=== PATIENT | female | born 1990 | race Caucasian/White ===

== ENCOUNTER 2017-06-26 23:57 | Inpatient (IN) | payer OTHER ==
[~2017-06-26] VITALS: Ht 177.8 cm; Wt 80.2 kg
[2017-06-27] MEDS ORDERED: PROMETHAZINE 25 MG/ML, 1ML ONE (00:24)
[2017-06-27] MEDS ORDERED: MORPHINE SULFATE 4 MG/ML, 1ML ONE (00:25)
[2017-06-27] MEDS ORDERED: ONDANSETRON 2MG/ML, 2ML ONE (00:25)
[2017-06-27] MEDS ORDERED: ONDANSETRON 2MG/ML, 2ML IVPush ONE (00:30)
[2017-06-27] MEDS ORDERED: SODIUM CHLORIDE FLUSH 10ML SYR IVF ONE ×2 (00:30→02:00)
[2017-06-27] MEDS ORDERED: SODIUM CHLORIDE 0.9% 1,000ML IVBOLUS ONE ×2 (00:30→02:00)
[2017-06-27] MEDS ORDERED: PROMETHAZINE 25 MG/ML, 1ML IM ONE (00:30)
[2017-06-27] MEDS ORDERED: MORPHINE SULFATE 4 MG/ML, 1ML IVPush PRN (00:30)
[2017-06-27 00:45] LABS: HEMATOCRIT 59.2 % (34.6-47.8); HEMOGLOBIN 19.6 g/dL (11.7-16.4); WHITE BLOOD COUNT 14.1 x10^3/uL (3.4-10)
[2017-06-27 00:57] LABS: BLOOD UREA NITROGEN 23 mg/dL (7-18)
[2017-06-27 01:00] LABS: ASPARTATE AMINO TRANSFERASE 174 U/L (15-37)
[2017-06-27] MEDS ORDERED: LORazepam 2 MG/ML, 1ML ONE (01:24)
[2017-06-27] MEDS ORDERED: MAGNESIUM SULFATE 1 GM, THIAMINE 100 MG, FOLIC ACID 1 MG, MVI ADULT 10 ML in SODIUM CHL... IV ONE (01:30)
[2017-06-27 01:31] LABS: ABG COLLECTION SITE RIGHT BRACHIAL; FIO2 ROOMAIR %
[2017-06-27] MEDS ORDERED: SODIUM CHLORIDE 0.9% 1,000 ML IV ONE (01:34)
[2017-06-27] MEDS: LORazepam 2 MG/ML, 1ML IVPush PRN ×2 (01:48→21:10)
[2017-06-27] MEDS ORDERED: NS + 20MEQ KCL 1,000 ML IV SCH (03:02)
[2017-06-27] MEDS ORDERED: LABETALOL 5MG/ML, 20ML IVPush PRN (03:30)
[2017-06-27] MEDS ORDERED: ONDANSETRON 2MG/ML, 2ML IVPush PRN (03:30)
[2017-06-27] MEDS ORDERED: DOCUSATE 100 MG CAPSULE PO PRN (03:30)
[2017-06-27] MEDS ORDERED: OXYcodone IR 5MG TABLET PO PRN (03:30)
[2017-06-27] MEDS ORDERED: ONDANSETRON ODT 4 MG PO PRN (03:30)
[2017-06-27] MEDS ORDERED: TEMAZEPAM 15 MG CAPSULE PO PRN (03:30)
[2017-06-27] MEDS ORDERED: LORazepam 1MG TABLET PO PRN (03:30)
[2017-06-27 03:56] LABS: BLOOD UREA NITROGEN 22 mg/dL (7-18)
[2017-06-27 04:28] VITALS: BP 128/85
[2017-06-27] MEDS: POTASSIUM CHLORIDE 20 MEQ, MAGNESIUM SULFATE 2 GM, THIAMINE 100 MG, MVI ADULT 10 ML, FO... IV SCH ×2 (04:56→16:01)
[2017-06-27] MEDS: morphine SULFATE 10 MG/ML, 1ML IVPush PRN ×7 (05:46→18:16)
[2017-06-27 07:48] VITALS: BP 137/93
[2017-06-27] MEDS: FAMOTIDINE 20 MG/2 ML IVPush SCH ×2 (08:06→21:10)
[2017-06-27] MEDS ORDERED: POTASSIUM CHLORIDE 20 MEQ in SODIUM CHLORIDE 0.9% 250 ML IV ONE (11:30)
[2017-06-27 11:34] VITALS: BP 115/83
[2017-06-27 13:53] VITALS: BP 131/89
[2017-06-27 19:09] VITALS: BP 120/73
[2017-06-27 22:54] VITALS: BP 121/86
[2017-06-28 01:09] VITALS: BP 112/77
[2017-06-28] MEDS ORDERED: CHLORDIAZEPOXIDE 5 MG CAPSULE PO PRN (01:30)
[2017-06-28] MEDS: CHLORDIAZEPOXIDE 5 MG CAPSULE PO SCH ×4 (02:36→20:18)
[2017-06-28] MEDS: morphine SULFATE 10 MG/ML, 1ML IVPush PRN (02:36)
[2017-06-28] MEDS ORDERED: NS + 20MEQ KCL 1,000 ML IV SCH ×2 (03:02)
[2017-06-28 05:36] LABS: HEMOGLOBIN 15.3 g/dL (11.7-16.4)
[2017-06-28] MEDS: NS + 20MEQ KCL 1,000 ML IV SCH ×2 (05:57→11:40)
[2017-06-28 06:03] LABS: ASPARTATE AMINO TRANSFERASE 135 U/L (15-37); BLOOD UREA NITROGEN 31 mg/dL (7-18)
[2017-06-28 06:45] LABS: DIFF TOTAL CELLS COUNTED 100 CELL DIFF
[2017-06-28 06:47] LABS: VERIFY COUNTS? YES
[2017-06-28] MEDS: POTASSIUM CHLORIDE 20 MEQ, MAGNESIUM SULFATE 2 GM, THIAMINE 100 MG, MVI ADULT 10 ML, FO... IV SCH ×2 (08:00→20:18)
[2017-06-28 08:29] VITALS: BP 117/88
[2017-06-28] MEDS: FAMOTIDINE 20 MG/2 ML IVPush SCH (08:33)
[2017-06-28 11:39] LABS: ASPARTATE AMINO TRANSFERASE 112 U/L (15-37); BLOOD UREA NITROGEN 31 mg/dL (7-18)
[2017-06-28 12:47] LABS: DAU SCREEN DISCLAIMER
[2017-06-28 13:03] LABS: POTASSIUM,URINE RANDOM 60 mmol/L
[2017-06-28] MEDS: LORazepam 2 MG/ML, 1ML IVPush PRN ×4 (13:18→23:15)
[2017-06-28 13:38] VITALS: BP 135/89
[2017-06-28 13:40] LABS: PTH INTACT INTERPRETATION ** Comment **
[2017-06-28 14:07] LABS: PARATHYROID HORMONE INTACT 18.4 pg/mL (14-72)
[2017-06-28 14:37] LABS: HIV 1&2 ANTIBODY SCREEN Nonreactive (Nonreactive)
[2017-06-28 14:38] LABS: HIV-1 p24 ANTIGEN Nonreactive (Nonreactive)
[2017-06-28 18:54] VITALS: BP 120/89
[2017-06-28] MEDS ORDERED: LABETALOL 5MG/ML, 20ML IVPush ONE (21:30)
[2017-06-29] MEDS ORDERED: NS + 20MEQ KCL 1,000 ML IV SCH (03:02)
[2017-06-29 04:00] VITALS: BP 127/77
[2017-06-29] MEDS: POTASSIUM CHLORIDE 20 MEQ, MAGNESIUM SULFATE 2 GM, THIAMINE 100 MG, MVI ADULT 10 ML, FO... IV SCH ×2 (04:48→16:51)
[2017-06-29 05:46] LABS: HEMATOCRIT 37.6 % (34.6-47.8); HEMOGLOBIN 12.5 g/dL (11.7-16.4); WHITE BLOOD COUNT 9.1 x10^3/uL (3.4-10)
[2017-06-29 05:52] LABS: BLOOD UREA NITROGEN 38 mg/dL (7-18)
[2017-06-29 06:06] LABS: ASPARTATE AMINO TRANSFERASE 77 U/L (15-37)
[2017-06-29 06:25] LABS: DIFF TOTAL CELLS COUNTED 100 CELL DIFF
[2017-06-29 06:28] LABS: VERIFY COUNTS? YES
[2017-06-29] MEDS: PANTOPRAZOLE 40 MG IV IVPush SCH (08:18)
[2017-06-29] MEDS: CHLORDIAZEPOXIDE 5 MG CAPSULE PO SCH ×3 (08:18→20:47)
[2017-06-29] MEDS: NS + 20MEQ KCL 1,000 ML IV SCH ×2 (09:10→13:40)
[2017-06-29] MEDS: ACETAMINOPHEN 325 MG TABLET PO PRN ×2 (11:12→18:34)
[2017-06-29 11:15] VITALS: BP 118/79
[2017-06-29 14:00] VITALS: BP 116/70
[2017-06-29 19:51] VITALS: BP 141/89
[2017-06-29] MEDS: morphine SULFATE 10 MG/ML, 1ML IVPush PRN (20:58)
[2017-06-30] MEDS: POTASSIUM CHLORIDE 20 MEQ, MAGNESIUM SULFATE 2 GM, THIAMINE 100 MG, MVI ADULT 10 ML, FO... IV SCH ×3 (01:20→21:52)
[2017-06-30] MEDS: NS + 20MEQ KCL 1,000 ML IV SCH ×3 (03:10→20:00)
[2017-06-30 03:14] VITALS: BP 135/84
[2017-06-30 05:58] LABS: HEMATOCRIT 33.6 % (34.6-47.8); HEMOGLOBIN 11.5 g/dL (11.7-16.4); WHITE BLOOD COUNT 10.7 x10^3/uL (3.4-10)
[2017-06-30 06:05] LABS: BLOOD UREA NITROGEN 31 mg/dL (7-18)
[2017-06-30] MEDS: CHLORDIAZEPOXIDE 5 MG CAPSULE PO SCH ×3 (07:45→20:39)
[2017-06-30] MEDS: PANTOPRAZOLE 40 MG IV IVPush SCH (07:45)
[2017-06-30 08:16] VITALS: BP 137/86
[2017-06-30 13:17] VITALS: BP 137/88
[2017-06-30 19:43] VITALS: BP 142/93
[2017-06-30] MEDS: ACETAMINOPHEN 325 MG TABLET PO PRN (20:40)
[2017-07-01 01:04] VITALS: BP 144/94
[2017-07-01] MEDS: NS + 20MEQ KCL 1,000 ML IV SCH ×2 (02:54→09:40)
[2017-07-01 05:08] LABS: HEMATOCRIT 30.3 % (34.6-47.8); HEMOGLOBIN 10.3 g/dL (11.7-16.4); WHITE BLOOD COUNT 10.8 x10^3/uL (3.4-10)
[2017-07-01 05:20] LABS: BLOOD UREA NITROGEN 23 mg/dL (7-18)
[2017-07-01 05:41] LABS: DIFF TOTAL CELLS COUNTED 100 CELL DIFF
[2017-07-01 05:43] LABS: VERIFY COUNTS? YES
[2017-07-01 05:44] LABS: POLYCHROMASIA 1+
[2017-07-01 07:36] VITALS: BP 139/97
[2017-07-01] MEDS: PANTOPRAZOLE 40 MG IV IVPush SCH (08:27)
[2017-07-01] MEDS: CHLORDIAZEPOXIDE 5 MG CAPSULE PO SCH ×3 (08:28→21:01)
[2017-07-01] MEDS: NEUTRA PHOS K 250 MG TABLET PO SCH ×3 (11:26→21:01)
[2017-07-01] MEDS: POTASSIUM CHLORIDE 20 MEQ, MAGNESIUM SULFATE 2 GM, THIAMINE 100 MG, MVI ADULT 10 ML, FO... IV SCH (13:05)
[2017-07-01 14:12] VITALS: BP 143/95
[2017-07-01 18:55] VITALS: BP 136/89
[2017-07-02 00:13] VITALS: BP 145/93
[2017-07-02] MEDS: NS + 20MEQ KCL 1,000 ML IV SCH ×4 (00:17→22:55)
[2017-07-02 05:37] LABS: HEMATOCRIT 29.6 % (34.6-47.8); HEMOGLOBIN 10.1 g/dL (11.7-16.4); WHITE BLOOD COUNT 8.9 x10^3/uL (3.4-10)
[2017-07-02 05:43] LABS: ASPARTATE AMINO TRANSFERASE 57 U/L (15-37); BLOOD UREA NITROGEN 15 mg/dL (7-18)
[2017-07-02 06:48] LABS: DIFF TOTAL CELLS COUNTED 100 CELL DIFF
[2017-07-02 06:50] VITALS: BP 132/82
[2017-07-02 06:51] LABS: VERIFY COUNTS? YES
[2017-07-02 06:52] LABS: POLYCHROMASIA 1+
[2017-07-02] MEDS: CHLORDIAZEPOXIDE 5 MG CAPSULE PO SCH ×3 (09:00→20:50)
[2017-07-02] MEDS: POTASSIUM PHOSPHATE 44 MEQ in SODIUM CHLORIDE 0.9% 500 ML IV ONE ×2 (09:00→10:17)
[2017-07-02] MEDS: NEUTRA PHOS K 250 MG TABLET PO SCH ×3 (09:12→20:50)
[2017-07-02] MEDS: PANTOPRAZOLE 40 MG IV IVPush SCH (09:12)
[2017-07-02] MEDS: POTASSIUM CHLORIDE 20 MEQ, MAGNESIUM SULFATE 2 GM, THIAMINE 100 MG, MVI ADULT 10 ML, FO... IV SCH (10:17)
[2017-07-02 14:25] VITALS: BP 147/94
[2017-07-02 18:54] VITALS: BP 145/91
[2017-07-02] MEDS: ACETAMINOPHEN 325 MG TABLET PO PRN (19:16)
[2017-07-03 02:42] VITALS: BP 143/92
[2017-07-03 04:16] LABS: HEMOGLOBIN 9.9 g/dL (11.7-16.4); WHITE BLOOD COUNT 8.2 x10^3/uL (3.4-10)
[2017-07-03 04:26] LABS: ASPARTATE AMINO TRANSFERASE 42 U/L (15-37); BLOOD UREA NITROGEN 10 mg/dL (7-18)
[2017-07-03] MEDS: NS + 20MEQ KCL 1,000 ML IV SCH (06:30)
[2017-07-03] MEDS: CHLORDIAZEPOXIDE 5 MG CAPSULE PO SCH ×3 (09:46→20:50)
[2017-07-03] MEDS: ACETAMINOPHEN 325 MG TABLET PO PRN ×2 (09:47→20:51)
[2017-07-03] MEDS ORDERED: POTASSIUM PHOSPHATE 44 MEQ in SODIUM CHLORIDE 0.9% 500 ML IV ONE ×2 (10:00→10:30)
[2017-07-03] MEDS ORDERED: POTASSIUM PHOS 4.4 MEQ/ML IV SCH (10:00)
[2017-07-03] MEDS: LOPERAMIDE 1 MG/5 ML, 10ML UDC PO SCH ×3 (10:53→22:30)
[2017-07-03] MEDS: PANTOPRAZOLE 40 MG IV IVPush SCH (10:53)
[2017-07-03] MEDS: NEUTRA PHOS K 250 MG TABLET PO SCH ×3 (12:59→20:50)
[2017-07-03 16:10] VITALS: BP_SYST 144; BP_SYST 146; BP_DIAS 93; BP_DIAS 94
[2017-07-03] MEDS ORDERED: ONDANSETRON 2MG/ML, 2ML IVPush PRN (19:30)
[2017-07-03] MEDS ORDERED: TEMAZEPAM 15 MG CAPSULE PO PRN (19:30)
[2017-07-03] MEDS ORDERED: DOCUSATE 100 MG CAPSULE PO PRN (19:30)
[2017-07-03] MEDS ORDERED: ONDANSETRON ODT 4 MG PO PRN (19:30)
[2017-07-03] MEDS ORDERED: OXYcodone IR 5MG TABLET PO PRN (19:30)
[2017-07-03 19:48] VITALS: BP 158/100
[2017-07-04 02:33] VITALS: BP 149/92
[2017-07-04 05:08] LABS: BLOOD UREA NITROGEN 7 mg/dL (7-18)
[2017-07-04 05:11] LABS: ASPARTATE AMINO TRANSFERASE 31 U/L (15-37)
[2017-07-04] MEDS: NEUTRA PHOS K 250 MG TABLET PO SCH ×3 (05:32→17:21)
[2017-07-04] MEDS: LOPERAMIDE 1 MG/5 ML, 10ML UDC PO SCH ×3 (05:32→16:30)
[2017-07-04] MEDS ORDERED: MAGNESIUM SULFATE PMX 2GM/50ML 50 ML IV ONE (07:30)
[2017-07-04] MEDS ORDERED: POTASSIUM CHLORIDE 40 MEQ in SODIUM CHLORIDE 0.9% 500 ML IV ONE (07:30)
[2017-07-04 08:05] VITALS: BP 133/89
[2017-07-04] MEDS: PANTOPRAZOLE 40 MG IV IVPush SCH (08:23)
[2017-07-04] MEDS: CHLORDIAZEPOXIDE 5 MG CAPSULE PO SCH ×2 (08:24→17:21)
[2017-07-04] MEDS: ACETAMINOPHEN 325 MG TABLET PO PRN (08:24)
[2017-07-04] MEDS ORDERED: MAGNESIUM OXIDE 400 MG TABLET PO SCH (11:30)
[2017-07-04] MEDS ORDERED: POTASSIUM CHLORIDE 20 MEQ TAB.ER.PRT PO ONE ×2 (12:00→17:30)
[2017-07-04 14:40] VITALS: BP 148/94
[2017-07-04] MEDS ORDERED: THIA100V3 PO (17:47)
[2017-07-04] MEDS ORDERED: MULT-257 PO (17:47)
[2017-07-04] MEDS ORDERED: FOLI-17 PO (17:47)
[2017-07-04] MEDS ORDERED: POTA20TA6 PO (17:47)
[2017-07-04] MEDS ORDERED: CHLO5CAP2 PO (17:47)
== END 2017-07-04 18:46 | disposition home or self-care (01) | DRG 438 ==
LOC: ED 23:59 → EDIP 06-27 03:02 → 5SO 06-27 04:33 → 4WST 06-27 14:25
PROVIDERS: ADMIT Internal Medicine; ATTEND Internal Medicine
DX: K85.20 Alcohol induced acute pancreatitis without necrosis or infection (principal); N17.0 Acute kidney failure with tubular necrosis; D69.59 Other secondary thrombocytopenia; E87.2 Acidosis; E83.39 Other disorders of phosphorus metabolism; E83.42 Hypomagnesemia; E87.1 Hypo-osmolality and hyponatremia; N39.0 Urinary tract infection, site not specified; K70.10 Alcoholic hepatitis without ascites; E86.0 Dehydration; E87.6 Hypokalemia; F10.129 Alcohol abuse with intoxication, unspecified; F41.9 Anxiety disorder, unspecified; K59.00 Constipation, unspecified
CPT/HCPCS: 36415; 36600; 74176; 76705; 76770; 80048; 80053; 80307; 81001; 82306; 82310; 82436; 82550; 82607; 82746; 82803; 82962; 83690; 83735; 83970; 84100; 84132; 84133; 84300; 84436; 84443; 84550; 84703; 85025; 85049; 86703; 87040; 87086; 87205; 87899; 93005; 96365; 96366; 96372; 96375; J2405; J2550; J3411; J3475; J3480; J7042; C9113; G0435; G0479; J2060; J2270; J7030; J7040; J7050; S0028